=== PATIENT | female | born 1940 | race Caucasian/White ===

== ENCOUNTER 2021-12-27 22:51 | Emergency (ER) | payer OTHER ==
[~2021-12-27] VITALS: Ht 160 cm; Wt 62.0 kg
[2021-12-27] MEDS ORDERED: HYDROcodone-ACET 10/325MG TAB PO ONE (23:30)
[2021-12-28 01:02] VITALS: BP 119/74
== END 2021-12-28 01:09 | disposition home or self-care (01) ==
LOC: ER 23:03
DX: M54.42 Lumbago with sciatica, left side (principal); Z88.8 Allergy status to other drugs, medicaments and biological substances